=== PATIENT | male | born 1990 | race African-American/Black ===

== ENCOUNTER 2017-12-17 13:38 | Emergency (ER) | payer OTHER ==
[~2017-12-17] VITALS: Ht 177.8 cm; Wt 80.0 kg
[2017-12-17 13:40] VITALS: BP 134/86
== END 2017-12-17 18:12 | disposition left against medical advice (07) ==
LOC: ER 14:16
DX: R11.2 Nausea with vomiting, unspecified (principal); Z53.21 Procedure and treatment not carried out due to patient leaving prior to being seen by health care provider
CPT/HCPCS: Z7610 ×3